=== PATIENT | female | born 1945 | race Caucasian/White ===

== ENCOUNTER 2021-04-25 19:04 | Emergency (ER) | payer MEDICARE, OTHER ==
[~2021-04-25] VITALS: Ht 154.9 cm; Wt 67.1 kg
[2021-04-25 19:47] LABS: BASOPHILS % (AUTO) 1 % (0-10); EOSINOPHILS # (AUTO) 0.1 10^3/uL (0.0-0.3); EOSINOPHILS % (AUTO) 2 % (0-10); HEMATOCRIT 38 % (35-52); HEMOGLOBIN 12.2 G/DL (11.5-16.0); LYMPHOCYTES # (AUTO) 1.3 X 10^3 (1.0-4.0); LYMPHOCYTES % (AUTO) 24 % (12-44); MEAN CORPUSCULAR HEMOGLOBIN 31 PG (25-34); MEAN CORPUSCULAR HGB CONC 32 G/DL (32-36); MEAN CORPUSCULAR VOLUME 95 FL (80-99); MEAN PLATELET VOLUME 10.1 FL (7.4-10.4); MONOCYTES # (AUTO) 0.6 X 10^3 (0.0-1.0); MONOCYTES % (AUTO) 10 % (0-12); NEUTROPHILS # (AUTO) 3.5 X 10^3 (1.8-7.8); PLATELET COUNT 248 10^3/uL (130-400); WHITE BLOOD COUNT 5.5 10^3/uL (4.3-11.0)
--- NOTE | 2021-04-25 19:49 | Diagnostic Imaging Report ---
INDICATION: Syncope. FINDINGS: The heart size, mediastinal configuration, and pulmonary vascularity are within normal limits. There is no pleural effusion, pneumothorax, or pneumonia. The osseous structures are unremarkable. IMPRESSION: No acute cardiopulmonary abnormality. Dictated by: Dictated on workstation # [id number]
[2021-04-25 19:55] VITALS: BP_SYST 167; BP_SYST 172; BP_SYST 180; BP_DIAS 86; BP_DIAS 87; BP_DIAS 93
--- NOTE | 2021-04-25 19:56 | ED General ---
General Chief Complaint: Dizziness/Syncope Stated Complaint: NEAR SYNCOPE Nursing Triage Note: pt brought in per ems for syncopal episode, pt states 18 year hx of such episodes, has had this multiple times and has been worked up several times with no definitive diagnosis Nursing Sepsis Screen: No Definite Risk Source of Information: Patient Exam Limitations: No Limitations History of Present Illness Date Seen by Provider: April 25, 2021 Time Seen by Provider: 19:15 Initial Comments Patient is a 76-year-old female who presents with generalized weakness episode starting 30 minutes prior to ED arrival. Patient reports feeling overwhelming generalized weakness lasting for several minutes. She denies feeling dizzy, lightheaded, chest pain palpitations, nauseated or short of breath. Patient was sitting at time episode occurred. She has since recovered. She has had multiple prior episodes but has not had any work-up in the past 15+ years. She denies fever, chills, nausea, sweats, cough, sore throat. No other acute symptoms or complaints. Timing/Duration: 1/2 Hour Severity: Moderate Modifying Factors: improves with Other Associated Systoms: Other Allergies and Home Medications Allergies Coded Allergies: Sulfa (Sulfonamide Antibiotics) (Verified Allergy, Unknown, 04/25/21) Patient Home Medication List Home Medication List Reviewed: Yes Review of Systems Review of Systems Constitutional: see HPI EENTM: see HPI Respiratory: see HPI Cardiovascular: see HPI Gastrointestinal: see HPI Genitourinary: see HPI Musculoskeletal: see HPI Skin: see HPI Psychiatric/Neurological: See HPI Hematologic/Lymphatic: See HPI Immunological/Allergic: see HPI All Other Systems Reviewed Negative Unless Noted: Yes Past Dshgsaf-Yoxuva-Wammih Hx Past Med/Social Hx: Reviewed Nursing Past Med/Soc Hx Patient Social History Alcohol Use: Denies Use Smoking Status: Never a Smoker 2nd Hand Smoke Exposure: No Recent Infectious Disease Expo: No Recent Hopitalizations: No Seasonal Allergies Seasonal Allergies: No Past Medical History Surgeries: Yes Hysterectomy, Orthopedic, Tonsillectomy Respiratory: No Cardiac: Yes High Cholesterol, Hypertension Neurological: No Genitourinary: No Gastrointestinal: No Musculoskeletal: No Endocrine: No HEENT: No Cancer: No Psychosocial: No Integumentary: No Blood Disorders: No Physical Exam Vital Signs Vital Signs - First Documented 04/25/21 19:11 Temp 36.6 Pulse 101 Resp 16 B/P (MAP) 178/78 (111) Pulse Ox 95 O2 Delivery Room Air Capillary Refill : Less Than 3 Seconds Height, Weight, BMI Height: '" Weight: lbs. oz. kg; 27.00 BMI Method: General Appearance: No Apparent Distress, WD/WN, Anxious Eyes: Bilateral Eye Normal Inspection, Bilateral Eye PERRL, Bilateral Eye EOMI HEENT: PERRL/EOMI, Pharynx Normal, Moist Mucous Membranes Neck: Full Range of Motion, Non Tender, Supple Respiratory: Chest Non Tender, Lungs Clear Cardiovascular: Regular Rate, Rhythm Gastrointestinal: Non Tender, Soft Back: Normal Inspection, No CVA Tenderness Neurologic/Psychiatric: Alert, Oriented x3, No Motor/Sensory Deficits, Normal Mood/Affect Skin: Normal Color Focused Exam Sepsis Stage: Ruled Out Possible Source: Other Time of Focused Exam: 20:00 Respiratory: Chest Non Tender, Lungs Clear Cardiovascular: Regular Rate, Rhythm, No Edema Skin: normal color Progress/Results/Core Measures Suspected Sepsis Recent Fever Within 48 Hours: No Infection Criteria Present: None New/Unexplained Altered Menta: No Sepsis Screen: No Definite Risk SIRS Temperature: Pulse: 101 Respiratory Rate: 16 Laboratory Tests 04/25/21 19:35: White Blood Count 5.5 Blood Pressure 178 /78 Mean: 111 Laboratory Tests 04/25/21 19:35: Creatinine 0.83, Platelet Count 248 Results/Orders Lab Results Laboratory Tests Test 04/25/21 19:35 04/25/21 19:43 Range/Units White Blood Count 5.5 4.3-11.0 10^3/uL Red Blood Count 3.95 L 4.35-5.85 10^6/uL Hemoglobin 12.2 11.5-16.0 G/DL Hematocrit 38 35-52 % Mean Corpuscular Volume 95 80-99 FL Mean Corpuscular Hemoglobin 31 25-34 PG Mean Corpuscular Hemoglobin Concent 32 32-36 G/DL Red Cell Distribution Width 13.0 10.0-14.5 % Platelet Count 248 130-400 10^3/uL Mean Platelet Volume 10.1 7.4-10.4 FL Immature Granulocyte % (Auto) 0 % Neutrophils (%) (Auto) 6 L 42-75 % Lymphocytes (%) (Auto) 24 12-44 % Monocytes (%) (Auto) 10 0-12 % Eosinophils (%) (Auto) 2 0-10 % Basophils (%) (Auto) 1 0-10 % Neutrophils # (Auto) 3.5 1.8-7.8 X 10^3 Lymphocytes # (Auto) 1.3 1.0-4.0 X 10^3 Monocytes # (Auto) 0.6 0.0-1.0 X 10^3 Eosinophils # (Auto) 0.1 0.0-0.3 10^3/uL Basophils # (Auto) 0.0 0.0-0.1 10^3/uL Immature Granulocyte # (Auto) 0.0 0.0-0.1 10^3/uL D-Dimer 0.56 H 0.00-0.49 UG/ML Sodium Level 142 135-145 MMOL/L Potassium Level 3.8 3.6-5.0 MMOL/L Chloride Level 105 98-107 MMOL/L Carbon Dioxide Level 26 21-32 MMOL/L Anion Gap 11 5-14 MMOL/L Blood Urea Nitrogen 17 7-18 MG/DL Creatinine 0.83 0.60-1.30 MG/DL Estimat Glomerular Filtration Rate > 60 BUN/Creatinine Ratio 20 Glucose Level 100 70-105 MG/DL Calcium Level 8.9 8.5-10.1 MG/DL Urine Color YELLOW Urine Clarity CLEAR Urine pH 7.0 5-9 Urine Specific [place] 1.010 L 1.016-1.022 Urine Protein NEGATIVE NEGATIVE Urine Glucose (UA) NEGATIVE NEGATIVE Urine Ketones NEGATIVE NEGATIVE Urine Nitrite NEGATIVE NEGATIVE Urine Bilirubin NEGATIVE NEGATIVE Urine Urobilinogen 0.2 < = 1.0 MG/DL Urine Leukocyte Esterase TRACE H NEGATIVE Urine RBC (Auto) NEGATIVE NEGATIVE Urine RBC NONE /HPF Urine WBC 5-10 H /HPF Urine Squamous Epithelial Cells 2-5 /HPF Urine Crystals NONE /LPF Urine Leucine Crystals /LPF Urine Bacteria FEW H /HPF Urine Casts NONE /LPF Urine Mucus NEGATIVE /LPF Urine Culture Indicated YES My Orders Orders - KELLY LEMONS DO Cbc With Automated Diff (04/25/21 19:34) Basic Metabolic Panel (04/25/21 19:34) Urinalysis (04/25/21 19:34) Ekg-Prn For Chest Pain Or Rhyt (04/25/21 19:34) Chest 1 View Ap/Pa Only (04/25/21 19:34) Fibrin Degradation Products (04/25/21 19:34) Orthostatic Vital Signs (12-19 (04/25/21 19:34) Urine Culture (04/25/21 19:43) Vital Signs/I&O 04/25/21 04/25/21 19:11 19:55 Temp 36.6 Pulse 101 66 74 89 Resp 16 B/P (MAP) 178/78 (111) 172/86 (114) 167/87 (113) 180/93 (122) Pulse Ox 95 O2 Delivery Room Air Capillary Refill : Less Than 3 Seconds Blood Pressure Mean: 111 Departure Communication (Admissions) EKG 04/25/21, 18:40. Sinus rhythm, rate 69, QRS 97, QTc, 431 sinus rhythm, left atrial enlargement, no acute ST-T wave changes. Chest x-ray: No acute cardiopulmonary disease. Patient orthostatic vital signs are negative. Vital signs stable throughout ED. Lab work reviewed. Possible urinary tract infection with bacteremia contributing to symptoms. IV Rocephin given. Patient is no longer symptomatic. Urine culture obtained. Will discharge from the emergency department with instructions to follow-up with PCP in 2 to 3 days for reevaluation. Return precautions reviewed. Patient verbalizes understanding agreement discharge instructions prior to departure. Impression Primary Impression: Dizziness Additional Impression: Urinary tract infection Disposition: HOME, SELF-CARE Condition: Stable Departure-Patient Inst. Decision time for Depature: 20:37 Referrals: NO,LOCAL PHYSICIAN (PCP/Family) Primary Care Physician Patient Instructions: Urinary Tract Infection, Adult ED Add. Discharge Instructions: Please increase fluids and take newly prescribed medications as directed. Follow-up with your PCP in 3 to 5 days for reevaluation. Return to the ED if new or worsening symptoms All discharge instructions reviewed with patient and/or family. Voiced understanding. Scripts Cephalexin (Cephalexin) 500 Mg Tablet 500 MG PO TID, #14 TAB Prov: KELLY LEMONS DO 04/25/21 KELLY LEMONS DO April 25, 2021 19:56
[2021-04-25 20:09] LABS: BACTERIA,URINE FEW /HPF; BILIRUBIN,URINE NEGATIVE (NEGATIVE); CLARITY,URINE CLEAR; COLOR,URINE YELLOW; GLUCOSE, URINE (UA) NEGATIVE (NEGATIVE); KETONES,URINE NEGATIVE (NEGATIVE); LEUKOCYTE ESTERASE ,URINE TRACE (NEGATIVE); NITRITE,URINE NEGATIVE (NEGATIVE); PROTEIN,URINE NEGATIVE (NEGATIVE)
[2021-04-25 20:33] LABS: BUN/CREATININE RATIO 20; CALCIUM 8.9 MG/DL (8.5-10.1); CARBON DIOXIDE 26 MMOL/L (21-32); CHLORIDE 105 MMOL/L (98-107); CREATININE SERUM 0.83 MG/DL (0.60-1.30); GFR ESTIMATED > 60; GLUCOSE 100 MG/DL (70-105); POTASSIUM 3.8 MMOL/L (3.6-5.0); SODIUM 142 MMOL/L (135-145)
[2021-04-25] MEDS ORDERED: CEPH500T PO (20:51)
[2021-04-25 20:58] VITALS: BP 146/53
[2021-04-26 08:08] LABS: NEUTROPHILS % (AUTO) 63 % (42-75)
== END 2021-04-25 20:58 | disposition home or self-care (01) ==
LOC: ER FS 19:09
DX: R42 Dizziness and giddiness (principal); N39.0 Urinary tract infection, site not specified; I10 Essential (primary) hypertension
CPT/HCPCS: 36415; 71045; 80048; 81000; 85025; 85379; 87088; 93005

== ENCOUNTER → 2022-07-21 | Outpatient (CLI) | payer OTHER ==
[~2022-07-21] VITALS: Ht 154.9 cm; Wt 69.1 kg
[~2022-07-21] MED LIST: CEPH500T PO; LIDOCAINE 1% INJ 50 ML (XYLOCAINE) VIAL IJ ONE
--- NOTE | 2022-07-21 10:29 | Diagnostic Imaging Report ---
INDICATION: Right breast calcifications. PROCEDURE: The patient presents for a stereotactic biopsy. The patient was brought to the stereotactic suite and placed in the sitting upright position. The right breast was positioned lateral/medial. Tomographic and stereotactic imaging of the right breast was performed. The suspicious microtest stations in the upper outer right breast posterior depth were targeted. The lateral right breast was prepped and draped in the usual sterile fashion. Small amount of 1% lidocaine was utilized for local anesthesia. An 8 gauge vacuum-assisted needle was advanced from a lateral medial approach and placed per appropriate coordinates. Four core biopsies were obtained using the 8 gauge vacuum-assisted device. Specimen radiograph was obtained. Specimen radiograph does show numerous microcalcifications within the sample labeled #4. There are several calcifications in the sample labeled #3. All images were viewed on a dedicated workstation. A marker clip was then deployed. Hemostasis was obtained using manual compression. 2-D CC and lateral medial mammography was performed demonstrating a marker clip in the upper and outer aspect of the right breast posterior depth. The patient tolerated procedure well and left the department in stable condition. IMPRESSION: Successful stereotactic biopsy right breast calcifications utilizing the vacuum-assisted device. Pathology results are currently pending. Dictated by: Dictated on workstation # [id number]
== END ==
LOC: RAD 08:14
PROVIDERS: ATTEND Family Medicine
DX: R92.0 Mammographic microcalcification found on diagnostic imaging of breast (principal)
CPT/HCPCS: 19081; A4648

== ENCOUNTER 2022-09-22 05:39 | Outpatient (CLI) | payer MEDICARE, OTHER ==
[~2022-09-22] VITALS: Ht 154.9 cm; Wt 68.9 kg
[~2022-09-22 05:39] MED LIST changes: -LIDOCAINE 1% INJ 50 ML (XYLOCAINE) VIAL IJ ONE
[2022-09-22] MEDS ORDERED: FISH OIL (13:19)
[2022-09-22] MEDS ORDERED: ASPI-999 PO (13:19)
[2022-09-22] MEDS ORDERED: DILT120C85 PO (13:19)
[2022-09-22] MEDS ORDERED: CALC-308 PO (13:19)
[2022-09-22] MEDS ORDERED: LEVO-129 PO (13:19)
[2022-09-22] MEDS ORDERED: LISI10TA25 PO (13:19)
== END 2022-09-27 09:31 | disposition home or self-care (01) ==
LOC: PREOP 05:39
PROVIDERS: ATTEND Surgery
DX: Z01.818 Encounter for other preprocedural examination (principal)

== ENCOUNTER 2022-09-29 07:16 | Day surgery (SDC) | payer MEDICARE, OTHER ==
[2022-09-29] VITALS (10 sets, daily range): BP systolic 128–157; BP diastolic 72–86
[~2022-09-29] VITALS: Ht 154.9 cm; Wt 68.9 kg
[~2022-09-29 07:16] MED LIST changes: +ASPI-999 PO; +CALC-308 PO; +DILT120C85 PO; +FISH OIL; +LEVO-129 PO; +LISI10TA25 PO
[2022-09-29] MEDS ORDERED: LACTATED RINGERS 1,000 ML IV PRN (07:30)
[2022-09-29] MEDS ORDERED: ceFAZolin INJECTION 2,000 MG in NS (IVPB) 50 ML IV ONE (07:30)
--- NOTE | 2022-09-29 08:04 | Progress Note-Pre Operative ---
Pre-Operative Progress Note Date of Available H&P: Sep 14, 2022 Date H&P Reviewed: Sep 29, 2022 Time H&P Reviewed: 08:03 History & Physical: H&P Reviewed, Patient Examed, No changes noted Pre-Operative Diagnosis: atypical ductal hyperplasia MARY LOU AVILA DO Sep 29, 2022 08:04
[2022-09-29] MEDS ORDERED: LIDOCAINE 1% INJ 10 ML VIAL INJ ONE (08:30)
[2022-09-29] MEDS ORDERED: BUP/EPI 0.5% 1:200,000 (MARCAINE) 10ML VIAL IJ ONE (11:21)
[2022-09-29] MEDS ORDERED: METHYLENE BLUE 0.5% (PROVAYBLUE) 50 mg/10 ml vial IV ONE (11:21)
[2022-09-29] MEDS ORDERED: LIDOCAINE PF 2% 5 ML (XYLOCAINE) VIAL ONE (11:27)
[2022-09-29] MEDS ORDERED: fentaNYL INJ 100 MCG/2 ML AMP ONE (11:27)
[2022-09-29] MEDS ORDERED: proPOfol 200 MG/20 ML (DIPRIVAN) VIAL IV ONE (11:27)
[2022-09-29] MEDS ORDERED: ONDANSETRON 4 MG/2 ML (SDV) Z0FRAN ONE (11:27)
[2022-09-29] MEDS ORDERED: BUP/EPI 0.5% 1:200,000 (SENSORCAINE) 30 ML VIAL IJ ONE (11:36)
--- NOTE | 2022-09-29 11:51 | Diagnostic Imaging Report ---
INDICATION: Atypical ductal hyperplasia. Patient presents for hook wire localization. Patient is brought to the stereotactic suite placed in a chair in the sitting upright position. The right breast was positioned lateral medial. The localizer clip was tomographically targeted. The lateral right breast was prepped and draped usual sterile fashion. Small amount 1% lidocaine was utilized for local anesthesia. A localizer needle was advanced from a lateral medial approach and placed with its tip beyond the marker clip in the outer right breast. The hookwire was then deployed and the needle was removed. Follow-up 2-D CC and lateral medial mammography was performed demonstrating a hookwire adjacent to the marker clip in the upper outer right breast. The hookwire was then affixed to the patient's skin. Patient tolerated the procedure well and was sent to same day surgery in satisfactory condition. IMPRESSION: 1. Hookwire localization, utilizing stereotactic/tomographic guidance, as described. Dictated by: Dictated on workstation # [id number]
[2022-09-29] MEDS ORDERED: ACHD5005 PO (13:04)
[2022-09-29] MEDS ORDERED: DOCU-143 PO (13:04)
[2022-09-29] MEDS ORDERED: SEVOFLURANE (ULTANE) 15 ML INHAL SOLN ONE (13:05)
--- NOTE | 2022-09-29 13:07 | Discharge Inst-Simple/Standard ---
Discharge Inst-Standard Discharge Medications New, Converted or Re-Newed RX: Transmitted to Pharmacy Patient Instructions/Follow Up Plan of Care/Instructions/FU: 2 weeks Ronald Activity as Tolerated: No Discharge Diet: Regular Diet Other Inst to Patient Verification and Attestation of Medical Student E/M Service A medical student performed and documented this service in my presence. I reviewed and verified all information documented by the medical student and made modifications to such information, when appropriate. I personally performed the physical exam and medical decision making. Mary Lou Cardenas, Sep 29, 2022,13:07 MARY LOU CARDENAS DO Sep 29, 2022 13:07
[2022-09-29] MEDS ORDERED: ONDANSETRON 4 MG/2 ML (SDV) Z0FRAN IVP PRN (13:15)
[2022-09-29] MEDS ORDERED: MEPERIDINE (DEMEROL) INJ 50 MG/ML IVP ONE (13:15)
[2022-09-29] MEDS ORDERED: PROMETHAZINE INJ 25 MG/ML (PHENERGAN) AMP IVP ONE (13:15)
[2022-09-29] MEDS ORDERED: morphine INJ 10 MG/ML 1ML (SYR OR VIAL) IVP ONE (13:15)
--- NOTE | 2022-09-29 14:25 | Diagnostic Imaging Report ---
INDICATION: Status post right lumpectomy. Specimen radiograph was submitted. The hookwire as well as the marker clip and calcifications are located within the specimen. IMPRESSION: Specimen radiograph, as described. Dictated by: Dictated on workstation # [id number]
--- NOTE | 2022-09-29 14:47 | Anesthesia-General Post-Op ---
General Patient Condition Mental Status/LOC: Same as Preop Cardiovascular: Satisfactory Nausea/Vomiting: Absent Respiratory: Satisfactory Pain: Controlled Complications: Absent Post Op Complications Complications None Follow Up Care/Instructions Patient Instructions None needed. Anesthesia/Patient Condition Patient Condition Patient is doing well, no complaints, stable vital signs, no apparent adverse anesthesia problems. No complications reported per nursing. NARENDRA GARCIA CRNA Sep 29, 2022 14:47
--- NOTE | 2022-09-29 23:05 | OPERATIVE REPORT ---
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 PROCEDURE: Right wire-localized excisional biopsy. SURGEON: Mary Lou Cardenas DO ANESTHESIA: General. ESTIMATED BLOOD LOSS: Minimal. COMPLICATIONS: None. INDICATIONS: The patient is a 77-year-old female with breast imaging and biopsy, which demonstrated atypical ductal hyperplasia. She understands risks and benefits of procedure and wishes to proceed. Consent was signed in chart. DESCRIPTION OF PROCEDURE: The patient was taken to the operating suite. She was prepped and draped in sterile fashion. Timeout was performed. Local anesthetic was infiltrated in the right breast around the wire. A 15 blade scalpel was used to make a small skin incision. The wire was incorporated through the incision. Cautery was used to dissect circumferentially around the wire, which removed the specimen all the way around the wire. The specimen was labeled two sutures long lateral, 1 long suture anterior and 2 short sutures superiorly. This was handed off radiology. Radiology confirmed the presence of the clip and the wire. The wound was then irrigated with copious amounts of irrigation. Hemostasis was achieved. Two clips were placed in the pocket of the wound. The subcutaneous tissues were then reapproximated using 3-0 Vicryl. Skin was then closed using 4-0 Monocryl in a running subcuticular fashion. The area was washed and dried and Skin Affix was placed over the incisions. The patient tolerated procedure well without complications. She was taken to recovery in stable condition. CC: Dr. Underwood ? requested, unable to deliver Job ID: [id number] DocumentID: [id number] Dictated Date: 09/29/2022 13:15:02 Loom Tuner Date: 09/29/2022 19:26:00 Dictated By: MARY LOU CARDENAS DO
== END 2022-09-29 14:54 | disposition home or self-care (01) ==
LOC: RAD 07:16
PROVIDERS: ATTEND Surgery
DX: N60.81 Other benign mammary dysplasias of right breast (principal); N62 Hypertrophy of breast; E03.9 Hypothyroidism, unspecified; Z79.899 Other long term (current) drug therapy
CPT/HCPCS: 19125; 19281; 76098; 87081; A4648

== ENCOUNTER 2022-11-09 05:30 | Outpatient (CLI) | payer MEDICARE ==
[~2022-11-09] VITALS: Ht 154.9 cm; Wt 69.0 kg
[~2022-11-09 05:30] MED LIST changes: +ACHD5005 PO; +DOCU-143 PO
== END 2022-11-14 15:02 ==
LOC: PREOP 05:30
PROVIDERS: ATTEND Surgery
DX: Z01.818 Encounter for other preprocedural examination (principal); K42.9 Umbilical hernia without obstruction or gangrene

== ENCOUNTER 2022-11-16 10:01 | Day surgery (SDC) | payer MEDICARE ==
[2022-11-16] VITALS (12 sets, daily range): BP systolic 109–142; BP diastolic 62–82
[~2022-11-16] VITALS: Ht 155 cm; Wt 69.0 kg
[2022-11-16] MEDS ORDERED: ceFAZolin INJECTION 2,000 MG in NS (IVPB) 50 ML IV ONE (10:30)
--- NOTE | 2022-11-16 10:35 | Progress Note-Pre Operative ---
Pre-Operative Progress Note Date of Available H&P: Nov 04, 2022 Date H&P Reviewed: Nov 16, 2022 Time H&P Reviewed: 10:35 History & Physical: H&P Reviewed, Patient Examed, No changes noted Pre-Operative Diagnosis: Umbilical hernia MARY LOU AVILA DO Nov 16, 2022 10:35
[2022-11-16] MEDS: LACTATED RINGERS 1,000 ML IV PRN ×2 (10:43→13:19)
[2022-11-16] MEDS ORDERED: LIDOCAINE PF 2% 5 ML (XYLOCAINE) VIAL ONE (11:30)
[2022-11-16] MEDS ORDERED: LIDOCAINE/EPI 1%-1:100,000 (XYLOCAINE) 30ML ONE (11:30)
[2022-11-16] MEDS ORDERED: ROCURONIUM 10 MG/ML 5 ML SYRINGE IV ONE (11:30)
[2022-11-16] MEDS ORDERED: fentaNYL INJ 100 MCG/2 ML AMP ONE ×2 (11:30→13:13)
[2022-11-16] MEDS ORDERED: ONDANSETRON 4 MG/2 ML (SDV) Z0FRAN ONE ×2 (11:30→13:08)
[2022-11-16] MEDS ORDERED: proPOfol 200 MG/20 ML (DIPRIVAN) VIAL IV ONE (11:30)
[2022-11-16] MEDS ORDERED: SEVOFLURANE (ULTANE) 15 ML INHAL SOLN ONE ×2 (11:30→12:48)
[2022-11-16] MEDS ORDERED: MIDAZOLAM 2 MG/2 ML (VERSED) VIAL ONE (11:30)
[2022-11-16] MEDS ORDERED: PHENYLEPHRINE 100 MCG/ML 10 ML (ANESTHESIA) SYR ONE (12:49)
[2022-11-16] MEDS ORDERED: LIDOCAINE/EPI 1%-1:100,000 (XYLOCAINE) 30ML INJ ONE (12:53)
--- NOTE | 2022-11-16 13:10 | Anesthesia-General Post-Op ---
General Patient Condition Mental Status/LOC: Same as Preop Cardiovascular: Satisfactory Nausea/Vomiting: Absent Respiratory: Satisfactory Pain: Controlled Complications: Absent Post Op Complications Complications None Follow Up Care/Instructions Patient Instructions None needed. Anesthesia/Patient Condition Patient Condition Patient is doing well, no complaints, stable vital signs, no apparent adverse anesthesia problems. No complications reported per nursing. WOO MAGDALENO CRNA Nov 16, 2022 13:10
[2022-11-16] MEDS ORDERED: fentaNYL INJ 100 MCG/2 ML AMP IVP ONE (13:15)
[2022-11-16] MEDS ORDERED: morphine INJ 10 MG/ML 1ML (SYR OR VIAL) IVP ONE (13:15)
[2022-11-16] MEDS ORDERED: ONDANSETRON 4 MG/2 ML (SDV) Z0FRAN IVP PRN (13:15)
[2022-11-16] MEDS ORDERED: MEPERIDINE (DEMEROL) INJ 50 MG/ML IVP ONE (13:15)
[2022-11-16] MEDS ORDERED: ACHD5005 PO (13:22)
--- NOTE | 2022-11-16 13:23 | Discharge Inst-Simple/Standard ---
Discharge Inst-Standard Discharge Medications New, Converted or Re-Newed RX: Transmitted to Pharmacy Patient Instructions/Follow Up Plan of Care/Instructions/FU: 2 weeks josy Activity as Tolerated: No Discharge Diet: Regular Diet Other Inst to Patient Follow up Appt: Make appointment for 2 week. Instructions: No lifting greater than 10 pounds. No strenuous activity. May shower in 24 hours, no tub bath or soaking. Use incentive spirometer at home as directed. No Smoking Skin/Wound Care: You have special glue over your incision that will fall off on it's own. Symptoms to Report: Appetite Changes, Extremity Discoloration, Numbness/Tingling, Swelling Increased, Bleeding Excessive, Eyesight Changes, Pain Increased, Urine Color Change, Constipation(Persistent), Fever over 101 degree F, Pain/Pressure in chest, Urinating Difficulty, Cough Up/Vomit Blood, Heart Beat Irreg/Pounding, Pain/Pressure in jaw, Vaginal Bleeding Increase, Cramps in feet or legs, Lightheadedness, Pain/Pressure in shoulder, Diarrhea(Persistent), Memory Changes Suddenly, Questions/Concerns, Weight gain consecutive days, Dizziness/Fainting, Nausea/Vomiting, Shortness of Breath, Weight gain over 2 pounds If questions or concerns contact your physician Or seek help at emergency department. MARY LOU AVILA DO Nov 16, 2022 13:23
--- NOTE | 2022-11-16 13:26 | Progress Note-Post Operative ---
Post-Operative Progess Note Surgeon (s)/Rv Body Mechanic (s) Surgeon MARY LOU AVILA DO Rv Body Mechanic: Dr. Sanchez to assist in retraction dissection and closure. Pre-Operative Diagnosis Umbilical hernia Post-Operative Diagnosis same Procedure & Operative Findings Date of Procedure 11/16/22 Procedure Performed/Findings PROCEDURE: Robotic/Laparoscopic umbilical hernia repair with mesh. COMPLICATIONS: None. INDICATIONS: The patient is a 77, female with an umbilical hernia, which has continued to increase in size and cause discomfort. The patient was explained the risk and benefits of the procedure and wished to proceed with the procedure. Consent was signed on the chart. DESCRIPTION OF PROCEDURE: The patient was taken into the operating suite, prepped and draped in sterile fashion. Surgical pause was performed. Local anesthetic was infiltrated in left upper quadrant. A 15 blade scalpel was used to make a small skin incision. Cautery was used to dissect down to the fascia, which was then scored and divided the muscle, went through the posterior sheath and a balloon trocar was inserted into the abdomen. The abdomen was then insufflated. Umbilical hernia present. Two 8 mm trocar was placed in the left lower quadrant and a 5 mm trocar was placed in right lower quadrant. The robot was docked and the falicorm and infraumbilical fat pad taken down. The defect was then closed using a continuous v-lock suture. Robot was undocked. Echo Ventralight mesh was then inserted in the abdomen grabbed through the stab incision. The balloon was inflated on the mesh. Circumferential tacks were placed with a SecureStrap Tacker. The balloon was then removed and inner crown was created as well. The mesh was tacked with pressure being decreased. The 12 mm fascial defect was then closed using 0 Vicryl. The abdomen was then desufflated,the trocars were removed. The skin was then closed using 4-0 Monocryl in a running subcuticular fashion. The abdomen was washed and dried and Skin Affix was placed over the incisions. The patient tolerated procedure well without any complications. She was taken to recovery room in stable condition. Anesthesia Type general Estimated Blood Loss Estimated blood loss (mL): minimal Specimens/Packing Specimens Removed MARY LOU Dubon DO Nov 16, 2022 13:26
[2022-11-16] MEDS ORDERED: HYDROcodone/APAP 5 MG/325 MG (LORTAB) TAB ONE (14:49)
[2022-11-16] MEDS ORDERED: HYDROcodone/APAP 5 MG/325 MG (LORTAB) TAB PO ONE (15:00)
== END 2022-11-16 15:50 | disposition home or self-care (01) ==
LOC: SDC 10:01
PROVIDERS: ATTEND Surgery
DX: K42.9 Umbilical hernia without obstruction or gangrene (principal); G47.33 Obstructive sleep apnea (adult) (pediatric)
CPT/HCPCS: 49652; 87081; C1781